=== PATIENT | female | born 1955 | race Caucasian/White ===

== ENCOUNTER 2018-05-20 00:35 | Inpatient (IN) | payer OTHER ==
[~2018-05-20] VITALS: Ht 157.5 cm; Wt 55.3 kg
[2018-05-20] MEDS ORDERED: [UNRECOGNIZED DRUG - CODE] (00:52)
[2018-05-24] MEDS ORDERED: PEPCID40 MG PO (16:13)
[2018-05-24] MEDS ORDERED: DICLOFENAC POTA50 MG PO (16:13)
[2018-05-24] MEDS ORDERED: AMOX1TAB5 PO (16:13)
== END 2018-05-24 17:16 | disposition home or self-care (01) | DRG 439 ==
LOC: ER 00:35 → MEDJ 13:17
PROC: 3E0336Z Introduction of Nutritional Substance into Peripheral Vein, Percutaneous Approach (ICD-10-PCS; principal; 2018-05-20)
PROC: BW40ZZZ Ultrasonography of Abdomen (ICD-10-PCS; 2018-05-20)
DX: K85.10 Biliary acute pancreatitis without necrosis or infection (principal); K80.18 Calculus of gallbladder with other cholecystitis without obstruction; E86.0 Dehydration; E78.4 Other hyperlipidemia; I80.8 Phlebitis and thrombophlebitis of other sites

== ENCOUNTER 2018-06-05 09:12 | Day surgery (SDC) | payer OTHER ==
[~2018-06-05 09:12] MED LIST: AMOX1TAB5 PO; DICLOFENAC POTA50 MG PO; PEPCID40 MG PO; [UNRECOGNIZED DRUG - CODE]
== END 2018-06-05 19:50 | disposition home or self-care (01) ==
LOC: CIR.AMB 09:12
DX: K80.10 Calculus of gallbladder with chronic cholecystitis without obstruction (principal)

== ENCOUNTER 2019-02-09 21:11 | Emergency (ER) | payer OTHER ==
[~2019-02-09] VITALS: Ht 157.5 cm; Wt 50.8 kg
== END 2019-02-09 23:07 | disposition home or self-care (01) ==
LOC: ER 21:11
DX: M54.2 Cervicalgia (principal)